=== PATIENT | male | born 1975 | race Caucasian/White ===

== ENCOUNTER 2017-01-23 07:08 | Inpatient (IN) | payer BC ==
[2017-01-23] VITALS (13 sets, daily range): BP systolic 0–193; BP diastolic 0–124
[~2017-01-23] VITALS: Ht 177.8 cm; Wt 80.9 kg
[2017-01-23 07:50] LABS: EOSINOPHIL (%) 0 % (0-5); HEMATOCRIT 40.1 % (38.0-50.0); IMMATURE GRANULOCYTE (%) 0.6 % (0.0-0.7); IMMATURE GRANULOCYTE COUNT 0.1 K/uL; INSTRUMENT ABS NEUTROPHIL CT 11.1 K/uL; LYMPHOCYTE COUNT 0.9 K/uL (1.0-2.8); MCH 37.9 PG (29.0-34.0); MCHC 37.4 G/DL (30.0-36.0); MCV 101.3 FL (86-99); MONOCYTE (%) 9.6 % (3-12); MONOCYTE COUNT 1.3 K/uL (0-0.8); NEUTROPHIL (%) 82.7 % (45-76); NEUTROPHIL COUNT 11.1 K/uL (1.8-6.4); RBC DIS.WIDTH-CV 11.9 % (11.8-14.6); RBC DIS.WIDTH-SD 44.4 % (39-53); RED BLOOD COUNT 3.96 M/uL (4.00-5.50); WHITE BLOOD COUNT 13.4 K/uL (4.1-10.2)
[2017-01-23 08:03] LABS: CHLORIDE 93 mEq/L (99-109); POTASSIUM 5.2 mEq/L (3.7-5.4); SODIUM 122 mEq/L (136-147)
[2017-01-23 08:06] LABS: ANION GAP 25 MEQ/L (2-14)
[2017-01-23 08:07] LABS: TOTAL BILIRUBIN 0.2 mg/dL (0.0-1.0)
[2017-01-23 08:09] LABS: ALKALINE PHOSPHATASE 75 IU/L (3-129); GFR ESTIMATE (CALCULATED) 32 mL/min/
[2017-01-23 08:10] LABS: UREA NITROGEN (BUN) 17 mg/dL (9-23)
[2017-01-23 08:12] LABS: TROP-I INTERPRETATION NEGATIVE; TROPONIN-I < 0.01 ng/mL (0.0-0.30)
[2017-01-23 08:21] LABS: GLUCOSE 603 mg/dL (70-99)
[2017-01-23 08:35] LABS: MEAN PLAT.VOLUME 11.2 uM^3 (9.0-12.4); PLAT.SUFFICIENCY ADEQUATE; PLATELET COUNT 181 K/uL (156-360)
[2017-01-23 09:01] LABS: PCO2 < 20 mm Hg (35-45); PO2 125 mm Hg (80-100)
[2017-01-23 09:08] LABS: COMMENTS - BLOOD GASES NEG A+C+; DEVICE ROOM AIR; FI02 21 %; SITE LR; TOTAL RESP RATE 36 resp/min; pH 6.99 (7.35-7.45)
[2017-01-23] MEDS ORDERED: ADVIL PM LI1 CAPSULE PO (09:24)
[2017-01-23 09:30] LABS: ADD MIUA? YES; BILIRUBIN NEGATIVE; BLOOD SMALL; COLOR STRAW ((YELLOW)); GLUCOSE (STRIP) >=500; KETONES 80; LEUKOCYTES NEGATIVE; NITRITE NEGATIVE; PROTEIN (STRIP) 100; SPECIFIC GRAVITY 1.013 (1.000-1.030); UROBILINOGEN 0.2 MG/DL (0.2-1.0)
[2017-01-23 09:36] LABS: INTER. NORMALIZED RATIO 0.9; PROTHROMBIN TIME 9.6 (9.2-11.2)
[2017-01-23 09:40] LABS: BACTERIA RARE /HPF; CALCIUM OXALATE CRYSTALS 1+ /HPF; EPITHELIAL CELLS RARE /HPF; MUCUS TRACE /LPF; RED BLOOD CELLS 0-5 /HPF (0-5); UCUL ADDED? NO; WHITE BLOOD CELLS 0-5 /HPF (0-5)
[2017-01-23 09:45] LABS: Estimated Average Glucose 306 mg/dL (70-123); HEMOGLOBIN A1c (GLYCOHEMOGLOB) 12.3 % HGB (Below 5.7)
[2017-01-23 09:47] LABS: D-DIMER ELISA 1.59 mg/L FEU (< 0.57)
[2017-01-23 12:49] LABS: PCO2 < 19 mm Hg (35-45)
[2017-01-23 12:49] LABS: HDL CHOLESTEROL 16 MG/DL (Desirable>=40); MAGNESIUM 2.3 mg/dl (1.3-2.7); NON-HDL CHOLESTEROL 486 mg/dL (Desirable<160); SAMPLE HEMOLYSIS CHECK 1; SAMPLE ICTERIC CHECK 0; SAMPLE LIPEMIA CHECK 1; TOTAL CHOLESTEROL 502 mg/dL (Desirable<200); TRIGLYCERIDES 2888 MG/DL (Normal: <150); URIC ACID 6.7 mg/dL (3.1-9.2)
[2017-01-23 12:50] LABS: PO2 105 mm Hg (80-100)
[2017-01-23 12:51] LABS: COMMENTS - BLOOD GASES A+C+; FI02 0.21 %; SITE RR; TOTAL RESP RATE 18 resp/min
[2017-01-23 12:52] LABS: pH 7.13 (7.35-7.45)
[2017-01-23 13:28] LABS: METH RESISTANT S AUREUS PCR NEGATIVE (NEGATIVE)
[2017-01-23 13:34] LABS: PROBE CHECK PASS; SPECIMEN PROCESSING CONTROL PASS
[2017-01-23 13:52] LABS: POINT-OF-CARE METER ID UU14100415
[2017-01-23 13:52] LABS: POINT-OF-CARE METER ID UU14100415
[2017-01-23 13:52] LABS: POINT-OF-CARE METER ID UU14100415
[2017-01-23 13:52] LABS: POINT-OF-CARE METER ID UU14100415
[2017-01-23 16:01] LABS: UR CREATININE CONCENTRATION 26.5 MG/DL
[2017-01-23 16:07] LABS: ANION GAP 23 MEQ/L (2-14); CHLORIDE 106 MEQ/L (99-109); GFR ESTIMATE (CALCULATED) 38 mL/min/; POTASSIUM 4.8 MEQ/L (3.7-5.4); SAMPLE HEMOLYSIS CHECK 0; SAMPLE ICTERIC CHECK 0; SAMPLE LIPEMIA CHECK 1; UREA NITROGEN (BUN) 18 mg/dL (9-23)
[2017-01-23 16:09] LABS: GLUCOSE 452 mg/dL (70-99); SODIUM 135 MEQ/L (136-147)
[2017-01-23 16:57] LABS: POINT-OF-CARE METER ID UU14174217
[2017-01-23 17:28] LABS: ANION GAP 22 MEQ/L (2-14); CHLORIDE 107 MEQ/L (99-109); GFR ESTIMATE (CALCULATED) 42 mL/min/; GLUCOSE 321 mg/dL (70-99); SAMPLE HEMOLYSIS CHECK 1; SAMPLE ICTERIC CHECK 0; SAMPLE LIPEMIA CHECK 0; SERUM ETHYL ALCOHOL < 10 mg/dL; SODIUM 134 MEQ/L (136-147); UREA NITROGEN (BUN) 17 mg/dL (9-23)
[2017-01-23 17:32] LABS: POTASSIUM 4.4 MEQ/L (3.7-5.4)
[2017-01-23 21:14] LABS: ANION GAP 17 MEQ/L (2-14); CHLORIDE 105 MEQ/L (99-109); GFR ESTIMATE (CALCULATED) 42 mL/min/; GLUCOSE 213 mg/dL (70-99); POTASSIUM 3.8 MEQ/L (3.7-5.4); SAMPLE HEMOLYSIS CHECK 1; SAMPLE ICTERIC CHECK 0; SAMPLE LIPEMIA CHECK 2; SODIUM 132 MEQ/L (136-147); UREA NITROGEN (BUN) 17 mg/dL (9-23)
[2017-01-23 23:07] LABS: POINT-OF-CARE METER ID UU14174217
[2017-01-24] VITALS (23 sets, daily range): BP systolic 139–178; BP diastolic 88–109
[2017-01-24 00:25] LABS: POINT-OF-CARE USER ID ENVSME70
[2017-01-24 01:28] LABS: POINT-OF-CARE METER ID UU13113803
[2017-01-24 02:20] LABS: ANION GAP 18 MEQ/L (2-14); CHLORIDE 107 MEQ/L (99-109); GFR ESTIMATE (CALCULATED) 42 mL/min/; GLUCOSE 142 mg/dL (70-99); POTASSIUM 3.6 MEQ/L (3.7-5.4); SAMPLE HEMOLYSIS CHECK 2; SAMPLE ICTERIC CHECK 0; SAMPLE LIPEMIA CHECK 0; SODIUM 136 MEQ/L (136-147); UREA NITROGEN (BUN) 17 mg/dL (9-23)
[2017-01-24 03:48] LABS: POINT-OF-CARE METER ID UU13113803
[2017-01-24 05:05] LABS: EOSINOPHIL (%) 0.1 % (0-5); HEMATOCRIT 32.5 % (38.0-50.0); IMMATURE GRANULOCYTE (%) 0.8 % (0.0-0.7); IMMATURE GRANULOCYTE COUNT 0.1 K/uL; INSTRUMENT ABS NEUTROPHIL CT 7.1 K/uL; LYMPHOCYTE COUNT 0.6 K/uL (1.0-2.8); MCH 35.1 PG (29.0-34.0); MCHC 36.6 G/DL (30.0-36.0); MEAN PLAT.VOLUME 10.9 uM^3 (9.0-12.4); MONOCYTE (%) 9.1 % (3-12); MONOCYTE COUNT 0.8 K/uL (0-0.8); NEUTROPHIL (%) 82.8 % (45-76); NEUTROPHIL COUNT 7.1 K/uL (1.8-6.4); PLATELET COUNT 152 K/uL (156-360); RBC DIS.WIDTH-CV 12.3 % (11.8-14.6); RED BLOOD COUNT 3.39 M/uL (4.00-5.50)
[2017-01-24 05:08] LABS: MCV 95.9 FL (86-99); WHITE BLOOD COUNT 8.6 K/uL (4.1-10.2)
[2017-01-24 06:05] LABS: ANION GAP 19 MEQ/L (2-14); CHLORIDE 105 MEQ/L (99-109); GFR ESTIMATE (CALCULATED) 45 mL/min/; GLUCOSE 176 mg/dL (70-99); POTASSIUM 3.3 MEQ/L (3.7-5.4); SAMPLE HEMOLYSIS CHECK 0; SAMPLE ICTERIC CHECK 0; SAMPLE LIPEMIA CHECK 1; SODIUM 135 MEQ/L (136-147); UREA NITROGEN (BUN) 17 mg/dL (9-23)
[2017-01-24 06:10] LABS: MAGNESIUM 1.9 mg/dl (1.3-2.7)
[2017-01-24 06:17] LABS: POINT-OF-CARE METER ID UU13113803
[2017-01-24 08:01] LABS: POINT-OF-CARE METER ID UU13113803
[2017-01-24 08:59] LABS: POINT-OF-CARE METER ID UU13113803
[2017-01-24 09:55] LABS: POINT-OF-CARE METER ID UU13113803
[2017-01-24 10:06] LABS: ANION GAP 15 MEQ/L (2-14); CHLORIDE 102 MEQ/L (99-109); GFR ESTIMATE (CALCULATED) 40 mL/min/; SAMPLE HEMOLYSIS CHECK 2; SAMPLE ICTERIC CHECK 0; SAMPLE LIPEMIA CHECK 1; SODIUM 131 MEQ/L (136-147); UREA NITROGEN (BUN) 17 mg/dL (9-23)
[2017-01-24 10:08] LABS: GLUCOSE 292 mg/dL (70-99); POTASSIUM 4.1 MEQ/L (3.7-5.4)
[2017-01-24 10:47] LABS: POINT-OF-CARE METER ID UU13113803
[2017-01-24 13:45] LABS: ANION GAP 17 MEQ/L (2-14); CHLORIDE 103 MEQ/L (99-109); GFR ESTIMATE (CALCULATED) 48 mL/min/; GLUCOSE 227 mg/dL (70-99); POTASSIUM 3.4 MEQ/L (3.7-5.4); SAMPLE HEMOLYSIS CHECK 1; SAMPLE ICTERIC CHECK 0; SAMPLE LIPEMIA CHECK 1; SODIUM 132 MEQ/L (136-147); UREA NITROGEN (BUN) 17 mg/dL (9-23)
[2017-01-24 13:46] LABS: POINT-OF-CARE METER ID UU13113803
[2017-01-24 17:22] LABS: POINT-OF-CARE METER ID UU13113803
[2017-01-24 19:17] LABS: POINT-OF-CARE METER ID UU13113803
[2017-01-24 19:55] LABS: ANION GAP 21 MEQ/L (2-14); CHLORIDE 122 MEQ/L (99-109); GFR ESTIMATE (CALCULATED) 40 mL/min/; GLUCOSE 197 mg/dL (70-99); SAMPLE HEMOLYSIS CHECK 4; SAMPLE ICTERIC CHECK 0; SAMPLE LIPEMIA CHECK 1; SODIUM 155 MEQ/L (136-147); UREA NITROGEN (BUN) 19 mg/dL (9-23)
[2017-01-24 21:23] LABS: POINT-OF-CARE METER ID UU14174217
[2017-01-24 21:51] LABS: POTASSIUM 3.4 MEQ/L (3.7-5.4)
[2017-01-24 22:34] LABS: ANION GAP 20 MEQ/L (2-14); CHLORIDE 131 MEQ/L (99-109); GFR ESTIMATE (CALCULATED) 38 mL/min/; GLUCOSE 187 mg/dL (70-99); SAMPLE HEMOLYSIS CHECK 2; SAMPLE ICTERIC CHECK 0; SAMPLE LIPEMIA CHECK 1; SODIUM 167 MEQ/L (136-147); UREA NITROGEN (BUN) 18 mg/dL (9-23)
[2017-01-24 23:54] LABS: POTASSIUM 2.9 MEQ/L (3.7-5.4)
[2017-01-25] VITALS (22 sets, daily range): BP systolic 122–158; BP diastolic 79–106
[2017-01-25 00:33] LABS: GLUCOSE 168 mg/dL (70-99)
[2017-01-25 00:35] LABS: ANION GAP 16 MEQ/L (2-14)
[2017-01-25 00:36] LABS: CHLORIDE 114 mEq/L (99-109); SODIUM 142 mEq/L (136-147); TOTAL BILIRUBIN 0.4 mg/dL (0.0-1.0)
[2017-01-25 00:37] LABS: ALKALINE PHOSPHATASE 67 IU/L (3-129); GFR ESTIMATE (CALCULATED) 48 mL/min/
[2017-01-25 00:38] LABS: UREA NITROGEN (BUN) 15 mg/dL (9-23)
[2017-01-25 01:24] LABS: POINT-OF-CARE METER ID UU13113803
[2017-01-25 03:29] LABS: POINT-OF-CARE METER ID UU13113803
[2017-01-25 04:24] LABS: ANION GAP 14 MEQ/L (2-14); CHLORIDE 111 MEQ/L (99-109); GFR ESTIMATE (CALCULATED) 48 mL/min/; GLUCOSE 187 mg/dL (70-99); POTASSIUM 2.8 MEQ/L (3.7-5.4); SAMPLE HEMOLYSIS CHECK 1; SAMPLE ICTERIC CHECK 0; SAMPLE LIPEMIA CHECK 1; SODIUM 142 MEQ/L (136-147); UREA NITROGEN (BUN) 14 mg/dL (9-23)
[2017-01-25 04:52] LABS: EOSINOPHIL (%) 0.5 % (0-5); HEMATOCRIT 30.7 % (38.0-50.0); IMMATURE GRANULOCYTE (%) 0.5 % (0.0-0.7); INSTRUMENT ABS NEUTROPHIL CT 4.8 K/uL; LYMPHOCYTE COUNT 0.7 K/uL (1.0-2.8); MCH 34.1 PG (29.0-34.0); MCHC 37.1 G/DL (30.0-36.0); MCV 91.9 FL (86-99); MEAN PLAT.VOLUME 10.4 uM^3 (9.0-12.4); MONOCYTE COUNT 0.6 K/uL (0-0.8); NEUTROPHIL (%) 78.2 % (45-76); NEUTROPHIL COUNT 4.8 K/uL (1.8-6.4); PLATELET COUNT 146 K/uL (156-360); RBC DIS.WIDTH-CV 11.9 % (11.8-14.6); RBC DIS.WIDTH-SD 40.4 % (39-53); RED BLOOD COUNT 3.34 M/uL (4.00-5.50); WHITE BLOOD COUNT 6.2 K/uL (4.1-10.2)
[2017-01-25 06:29] LABS: POINT-OF-CARE METER ID UU14162636
[2017-01-25 07:00] LABS: ANION GAP 11 MEQ/L (2-14); CHLORIDE 106 MEQ/L (99-109); GFR ESTIMATE (CALCULATED) 51 mL/min/; GLUCOSE 187 mg/dL (70-99); HDL CHOLESTEROL 12 MG/DL (Desirable>=40); NON-HDL CHOLESTEROL 685 mg/dL (Desirable<160); POTASSIUM 2.8 MEQ/L (3.7-5.4); SAMPLE HEMOLYSIS CHECK 1; SAMPLE ICTERIC CHECK 0; SAMPLE LIPEMIA CHECK 1; TOTAL CHOLESTEROL 697 mg/dL (Desirable<200); UREA NITROGEN (BUN) 13 mg/dL (9-23)
[2017-01-25 07:01] LABS: MAGNESIUM 2.3 mg/dl (1.3-2.7); SODIUM 133 MEQ/L (136-147)
[2017-01-25 07:10] LABS: TRIGLYCERIDES 2011 MG/DL (Normal: <150)
[2017-01-25 07:22] LABS: POINT-OF-CARE METER ID UU14162636
[2017-01-25 08:21] LABS: POINT-OF-CARE METER ID UU14162636
[2017-01-25 09:21] LABS: POINT-OF-CARE METER ID UU14162636
[2017-01-25 10:24] LABS: POINT-OF-CARE METER ID UU14162636
[2017-01-25 11:08] LABS: ANION GAP 10 MEQ/L (2-14); CHLORIDE 107 MEQ/L (99-109); GFR ESTIMATE (CALCULATED) > 59 mL/min/; GLUCOSE 149 mg/dL (70-99); SAMPLE HEMOLYSIS CHECK 0; SAMPLE ICTERIC CHECK 0; SAMPLE LIPEMIA CHECK 1; SODIUM 136 MEQ/L (136-147); UREA NITROGEN (BUN) 12 mg/dL (9-23)
[2017-01-25 11:31] LABS: POINT-OF-CARE METER ID UU14162636
[2017-01-25 12:26] LABS: POINT-OF-CARE METER ID UU14162636
[2017-01-25 13:38] LABS: POINT-OF-CARE METER ID UU14162636
[2017-01-25 15:07] LABS: ANION GAP 17 MEQ/L (2-14); GFR ESTIMATE (CALCULATED) 55 mL/min/; GLUCOSE 186 mg/dL (70-99); LIPASE 65 U/L (1.0-51.0); SAMPLE HEMOLYSIS CHECK 0; SAMPLE ICTERIC CHECK 0; SAMPLE LIPEMIA CHECK 1; UREA NITROGEN (BUN) 13 mg/dL (9-23)
[2017-01-25 15:08] LABS: CHLORIDE 121 MEQ/L (99-109); POTASSIUM 3.7 MEQ/L (3.7-5.4); SODIUM 152 MEQ/L (136-147)
[2017-01-25 15:28] LABS: POINT-OF-CARE METER ID UU14162636
[2017-01-25 17:23] LABS: POINT-OF-CARE METER ID UU14162636
[2017-01-25 18:30] LABS: POINT-OF-CARE METER ID UU14162636
[2017-01-25 19:24] LABS: POINT-OF-CARE METER ID UU13113803
[2017-01-25 20:27] LABS: POINT-OF-CARE METER ID UU13113803
[2017-01-26] VITALS (23 sets, daily range): BP systolic 98–140; BP diastolic 68–98
[2017-01-26 00:26] LABS: POINT-OF-CARE METER ID UU13113803
[2017-01-26 01:41] LABS: POINT-OF-CARE METER ID UU13113803
[2017-01-26 03:34] LABS: POINT-OF-CARE METER ID UU13113803
[2017-01-26 05:34] LABS: POINT-OF-CARE METER ID UU13113803
[2017-01-26 05:50] LABS: HEMATOCRIT 28.8 % (38.0-50.0); MCHC 37.2 G/DL (30.0-36.0); MCV 94.1 FL (86-99); RBC DIS.WIDTH-CV 12.5 % (11.8-14.6); RBC DIS.WIDTH-SD 43.2 % (39-53); RED BLOOD COUNT 3.06 M/uL (4.00-5.50); WHITE BLOOD COUNT 5.7 K/uL (4.1-10.2)
[2017-01-26 06:14] LABS: AMYLASE 36 IU/L (1-118); ANION GAP 9 MEQ/L (2-14); GFR ESTIMATE (CALCULATED) 55 mL/min/; GLUCOSE 176 mg/dL (70-99); LIPASE 56 U/L (1.0-51.0); MAGNESIUM 2.1 mg/dl (1.3-2.7); POTASSIUM 3.1 MEQ/L (3.7-5.4); SAMPLE HEMOLYSIS CHECK 0; SAMPLE ICTERIC CHECK 0; SAMPLE LIPEMIA CHECK 1; UREA NITROGEN (BUN) 10 mg/dL (9-23)
[2017-01-26 06:39] LABS: CHLORIDE 107 MEQ/L (99-109); SODIUM 136 MEQ/L (136-147)
[2017-01-26 06:53] LABS: EOSINOPHIL COUNT 0.1 K/uL (0-0.3); IMMATURE GRANULOCYTE (%) 0.3 % (0.0-0.7); INSTRUMENT ABS NEUTROPHIL CT 4.1 K/uL; MONOCYTE COUNT 0.6 K/uL (0-0.8); NEUTROPHIL (%) 71.8 % (45-76); NEUTROPHIL COUNT 4.1 K/uL (1.8-6.4)
[2017-01-26 07:40] LABS: POINT-OF-CARE METER ID UU13113803
[2017-01-26 07:50] LABS: EOSINOPHIL (%) 0.9 % (0-5); EOSINOPHIL COUNT 0.1 K/uL (0-0.3); IMMATURE GRANULOCYTE (%) 0.2 % (0.0-0.7); INSTRUMENT ABS NEUTROPHIL CT 4.1 K/uL; LYMPHOCYTE COUNT 0.7 K/uL (1.0-2.8); MCH 34.3 PG (29.0-34.0); MCV 95.2 FL (86-99); MEAN PLAT.VOLUME 10.2 uM^3 (9.0-12.4); MONOCYTE (%) 10.5 % (3-12); MONOCYTE COUNT 0.6 K/uL (0-0.8); NEUTROPHIL (%) 74.5 % (45-76); NEUTROPHIL COUNT 4.1 K/uL (1.8-6.4); PLATELET COUNT 175 K/uL (156-360); RBC DIS.WIDTH-CV 12.8 % (11.8-14.6); RBC DIS.WIDTH-SD 44.9 % (39-53); RED BLOOD COUNT 3.15 M/uL (4.00-5.50); WHITE BLOOD COUNT 5.5 K/uL (4.1-10.2)
[2017-01-26 08:28] LABS: HDL CHOLESTEROL 15 MG/DL (Desirable>=40); NON-HDL CHOLESTEROL 651 mg/dL (Desirable<160); TOTAL CHOLESTEROL 666 mg/dL (Desirable<200); TRIGLYCERIDES 1025 MG/DL (Normal: <150)
[2017-01-26 09:39] LABS: POINT-OF-CARE METER ID UU13113803
[2017-01-26 10:38] LABS: POINT-OF-CARE METER ID UU13113803
[2017-01-26 11:41] LABS: POINT-OF-CARE METER ID UU13113803
[2017-01-26 12:42] LABS: POINT-OF-CARE METER ID UU13113803
[2017-01-26 13:41] LABS: POINT-OF-CARE METER ID UU13113803
[2017-01-26 15:40] LABS: POINT-OF-CARE METER ID UU13113803
[2017-01-26 16:40] LABS: POINT-OF-CARE METER ID UU13113803
[2017-01-26 17:43] LABS: POINT-OF-CARE METER ID UU13113803
[2017-01-26 19:59] LABS: POINT-OF-CARE METER ID UU13113803
[2017-01-26 20:46] LABS: POINT-OF-CARE METER ID UU13113803
[2017-01-26 21:50] LABS: POINT-OF-CARE METER ID UU13113803
[2017-01-26 23:03] LABS: POINT-OF-CARE METER ID UU13113803
[2017-01-27] VITALS (18 sets, daily range): BP systolic 110–137; BP diastolic 76–93
[2017-01-27 02:19] LABS: POINT-OF-CARE METER ID UU13113803
[2017-01-27 03:11] LABS: POINT-OF-CARE METER ID UU13113803
[2017-01-27 04:15] LABS: POINT-OF-CARE METER ID UU13113803
[2017-01-27 05:31] LABS: POINT-OF-CARE METER ID UU13113803; POINT-OF-CARE USER ID ENVSME70
[2017-01-27 06:10] LABS: POINT-OF-CARE METER ID UU13113803
[2017-01-27 06:58] LABS: POINT-OF-CARE METER ID UU13113803
[2017-01-27 07:12] LABS: HEMATOCRIT 30.3 % (38.0-50.0); MCH 34.5 PG (29.0-34.0); MCHC 35.3 G/DL (30.0-36.0); MCV 97.7 FL (86-99); PLATELET COUNT 220 K/uL (156-360); RBC DIS.WIDTH-CV 13.1 % (11.8-14.6); RBC DIS.WIDTH-SD 46.5 % (39-53); WHITE BLOOD COUNT 7.4 K/uL (4.1-10.2)
[2017-01-27 07:19] LABS: ALKALINE PHOSPHATASE 67 IU/L (3-129); ANION GAP 10 MEQ/L (2-14); CHLORIDE 106 MEQ/L (99-109); CREATINE KINASE 36 IU/L (1-294); DIRECT BILIRUBIN 0.1 mg/dL (0.0-0.3); GFR ESTIMATE (CALCULATED) 51 mL/min/; GLUCOSE 158 mg/dL (70-99); HDL CHOLESTEROL 16 MG/DL (Desirable>=40); MAGNESIUM 2.3 mg/dl (1.3-2.7); NON-HDL CHOLESTEROL 600 mg/dL (Desirable<160); SAMPLE HEMOLYSIS CHECK 2; SAMPLE ICTERIC CHECK 0; SAMPLE LIPEMIA CHECK 0; SODIUM 136 MEQ/L (136-147); TOTAL BILIRUBIN 0.7 MG/DL (0.0-1.0); TOTAL CHOLESTEROL 616 mg/dL (Desirable<200); TRIGLYCERIDES 482 MG/DL (Normal: <150); UREA NITROGEN (BUN) 9 mg/dL (9-23)
[2017-01-27 07:51] LABS: EOSINOPHIL (%) 0.8 % (0-5); EOSINOPHIL COUNT 0.1 K/uL (0-0.3); IMMATURE GRANULOCYTE (%) 0.5 % (0.0-0.7); LYMPHOCYTE COUNT 1.3 K/uL (1.0-2.8); MONOCYTE (%) 12.2 % (3-12); MONOCYTE COUNT 0.9 K/uL (0-0.8); NEUTROPHIL (%) 68.2 % (45-76)
[2017-01-27 10:39] LABS: NO-CHARGE AST (GOT) 12 IU/L (15-37); POTASSIUM 3.6 MEQ/L (3.7-5.4)
[2017-01-27 12:14] LABS: POINT-OF-CARE METER ID UU14174217
[2017-01-27 12:39] LABS: IRON 25 MCG/DL (35-150)
[2017-01-27 13:50] LABS: FERRITIN 1469 NG/ML (22-322)
[2017-01-28 07:09] VITALS: BP 110/70
[2017-01-28 07:15] LABS: EOSINOPHIL (%) 1.3 % (0-5); EOSINOPHIL COUNT 0.1 K/uL (0-0.3); HEMATOCRIT 28.9 % (38.0-50.0); IMMATURE GRANULOCYTE (%) 0.7 % (0.0-0.7); INSTRUMENT ABS NEUTROPHIL CT 3.3 K/uL; LYMPHOCYTE COUNT 1.2 K/uL (1.0-2.8); MCH 34.2 PG (29.0-34.0); MCHC 34.6 G/DL (30.0-36.0); MEAN PLAT.VOLUME 10.8 uM^3 (9.0-12.4); MONOCYTE (%) 16.3 % (3-12); MONOCYTE COUNT 0.9 K/uL (0-0.8); NEUTROPHIL (%) 59.3 % (45-76); NEUTROPHIL COUNT 3.3 K/uL (1.8-6.4); PLATELET COUNT 211 K/uL (156-360); RED BLOOD COUNT 2.92 M/uL (4.00-5.50); WHITE BLOOD COUNT 5.6 K/uL (4.1-10.2)
[2017-01-28 07:35] LABS: ALKALINE PHOSPHATASE 57 IU/L (3-129); ANION GAP 10 MEQ/L (2-14); CHLORIDE 106 MEQ/L (99-109); GFR ESTIMATE (CALCULATED) 51 mL/min/; GLUCOSE 162 mg/dL (70-99); HDL CHOLESTEROL 15 MG/DL (Desirable>=40); NON-HDL CHOLESTEROL 462 mg/dL (Desirable<160); POTASSIUM 3.7 MEQ/L (3.7-5.4); SAMPLE HEMOLYSIS CHECK 0; SAMPLE ICTERIC CHECK 0; SAMPLE LIPEMIA CHECK 0; SODIUM 140 MEQ/L (136-147); TOTAL CHOLESTEROL 477 mg/dL (Desirable<200); TRIGLYCERIDES 406 MG/DL (Normal: <150); UREA NITROGEN (BUN) 15 mg/dL (9-23)
[2017-01-28 07:36] LABS: TOTAL BILIRUBIN 0.4 MG/DL (0.0-1.0)
[2017-01-28 12:00] LABS: POINT-OF-CARE METER ID UU13113725
[2017-01-28 15:15] VITALS: BP 113/72
[2017-01-28 23:22] VITALS: BP 102/68
[2017-01-29 07:08] LABS: EOSINOPHIL (%) 1.1 % (0-5); EOSINOPHIL COUNT 0.1 K/uL (0-0.3); HEMATOCRIT 30.8 % (38.0-50.0); IMMATURE GRANULOCYTE (%) 1.1 % (0.0-0.7); IMMATURE GRANULOCYTE COUNT 0.1 K/uL; INSTRUMENT ABS NEUTROPHIL CT 2.9 K/uL; LYMPHOCYTE COUNT 1.3 K/uL (1.0-2.8); MCH 34.4 PG (29.0-34.0); MCHC 34.7 G/DL (30.0-36.0); MEAN PLAT.VOLUME 10.7 uM^3 (9.0-12.4); MONOCYTE (%) 19.1 % (3-12); NEUTROPHIL (%) 53.9 % (45-76); NEUTROPHIL COUNT 2.9 K/uL (1.8-6.4); PLATELET COUNT 263 K/uL (156-360); RBC DIS.WIDTH-CV 12.5 % (11.8-14.6); RBC DIS.WIDTH-SD 45.4 % (39-53); RED BLOOD COUNT 3.11 M/uL (4.00-5.50); WHITE BLOOD COUNT 5.4 K/uL (4.1-10.2)
[2017-01-29 07:20] VITALS: BP 123/86
[2017-01-29 07:33] LABS: ANION GAP 10 MEQ/L (2-14); CHLORIDE 102 MEQ/L (99-109); GFR ESTIMATE (CALCULATED) 51 mL/min/; GLUCOSE 242 mg/dL (70-99); HDL CHOLESTEROL 19 MG/DL (Desirable>=40); MAGNESIUM 2.1 mg/dl (1.3-2.7); NON-HDL CHOLESTEROL 441 mg/dL (Desirable<160); POTASSIUM 3.5 MEQ/L (3.7-5.4); SAMPLE HEMOLYSIS CHECK 0; SAMPLE ICTERIC CHECK 0; SAMPLE LIPEMIA CHECK 0; SODIUM 138 MEQ/L (136-147); TOTAL CHOLESTEROL 460 mg/dL (Desirable<200); TRIGLYCERIDES 444 MG/DL (Normal: <150); UREA NITROGEN (BUN) 16 mg/dL (9-23)
[2017-01-29 10:47] LABS: POINT-OF-CARE METER ID UU13113725
[2017-01-29] MEDS ORDERED: FENOFIBRATE145 M1 PO (13:37)
[2017-01-29] MEDS ORDERED: ATORVASTATIN CA80 MG PO (13:37)
[2017-01-29] MEDS ORDERED: RAMIPRIL2.5 MG PO (13:37)
[2017-01-29] MEDS ORDERED: LANTUS 3 M100 UNITS1 SC (13:37)
[2017-01-29] MEDS ORDERED: AMLODIPINE BESYL5 MG PO (13:37)
== END 2017-01-29 15:54 | disposition home or self-care (01) | DRG 638 ==
LOC: EME 07:08 → EDOF 09:15 → 4WEST 09:15 → 5EAST 01-27 16:07
PROVIDERS: Emergency Medicine; Hospitalist; Internal Medicine; Internal Medicine Nephrology; Surgery Surgical Critical Care
DX: E13.10 Other specified diabetes mellitus with ketoacidosis without coma (principal); N17.9 Acute kidney failure, unspecified; E78.5 Hyperlipidemia, unspecified; I12.9 Hypertensive chronic kidney disease with stage 1 through stage 4 chronic kidney disease, or unspecified chronic kidney disease; E11.22 Type 2 diabetes mellitus with diabetic chronic kidney disease; N18.3 Chronic kidney disease, stage 3 (moderate); E87.5 Hyperkalemia; E87.1 Hypo-osmolality and hyponatremia; D69.6 Thrombocytopenia, unspecified
CPT/HCPCS: 36600; 71010; 80048; 80048 91; 80053; 80061; 80076; 81003; 82150; 82550; 82570; 82728; 82803; 82948; 83036; 83540; 83690; 83735; 83930; 83935; 84100; 84156; 84300; 84443; 84466; 84484; 84550; 84999; 85025; 85025 91; 85027; 85379; 85610; 85730; 87040; 87086; 87641; 93005; 99202; 99281; 99285; G0480; J1644; J1815; J2060; J3475; J3480; J7030; J7050; J7120